=== PATIENT | male | born 1995 | race Caucasian/White ===

== ENCOUNTER 2019-01-17 18:56 | Emergency (ER) | payer BC ==
[~2019-01-17] VITALS: Ht 193 cm; Wt 113.4 kg
[~2019-01-17 18:56] MED LIST: AMOXICILLIN,AM875 MG PO; MOTRIN800 MG PO; ZITHROMAX Z PA250 MG PO
[2019-01-17 19:22] LABS: BASO # 0.1 10*3/uL (0.0-0.1); BASO % 0.6 % (0.0-1.0); EOS # 0.2 10*3/uL (0.0-0.4); HEMATOCRIT 51.2 % (42.0-52.0); HEMOGLOBIN 16.7 g/dl (14.0-18.0); LYMPH # 2.4 10*3/uL (1.3-4.4); LYMPH % 23.7 % (27.0-41.0); MEAN CELL VOLUME 88.3 fl (80.0-94.0); MEAN CORPUSCULAR HGB 28.8 pg (27.0-31.0); MEAN CORPUSCULAR HGB CONC 32.6 g/dl (33.0-37.0); MONO # 0.7 10*3/uL (0.1-1.0); MONO % 6.9 % (3.0-9.0); NEUT # 6.7 10*3/uL (2.3-7.9); NEUT % 66.5 % (47.0-73.0); PLATELET COUNT AUTOMATED 417 10*3/uL (130-400); RED CELL DISTRI WIDTH 13.3 % (0-14.5); WHITE BLOOD COUNT 10.1 10*3/uL (4.8-10.8)
[2019-01-17 19:49] LABS: ALBUMIN 3.9 gm/dl (3.1-4.5); ALKALINE PHOSPHATASE 59 U/L (45-117); BUN 13 mg/dl (7-24); CHLORIDE 105 mmol/L (98-107); CREATININE 1.16 mg/dL (0.70-1.30); LIPASE 82 U/L (73-393); POTASSIUM 3.9 mmol/L (3.5-5.1); SGOT/AST 23 IU/L (3-35); SGPT/ALT 46 U/L (12-78); SODIUM 140 mmol/L (136-145); TOTAL PROTEIN 8.2 gm/dL (6.4-8.2)
[2019-01-17 20:17] LABS: BILIRUBIN NEGATIVE (NEGATIVE); BLOOD NEGATIVE (NEGATIVE); CLARITY CLEAR (CLEAR); COLOR YELLOW (YELLOW); GLUCOSE NEGATIVE (NEGATIVE); KETONE TRACE (NEGATIVE); LEUKO ESTERASE NEGATIVE (NEGATIVE); NITRITE NEGATIVE (NEGATIVE); PH 6.5 (5.0-9.0); SPECIFIC GRAVITY 1.025 (1.005-1.030); UROBILINOGEN 0.2 E.U./dl (0.2-1.0)
[2019-01-17 20:24] LABS: MUCOUS 2+
[2019-01-17 20:25] LABS: EPITHELIAL CELLS 0-2
[2019-01-17] MEDS ORDERED: PEPCID20 MG PO (21:34)
== END 2019-01-17 21:42 | disposition home or self-care (01) ==
LOC: ED 18:56
PROVIDERS: Physician Assistant
DX: R11.10 Vomiting, unspecified (principal); R10.13 Epigastric pain; R05 Cough; R09.81 Nasal congestion; R53.1 Weakness; R42 Dizziness and giddiness; Z88.1 Allergy status to other antibiotic agents

== ENCOUNTER → 2021-02-08 | Outpatient (CLI) | payer OTHER ==
[~2021-02-08] MED LIST changes: +PEPCID20 MG PO
== END | disposition home or self-care (01) ==
LOC: RAD 11:39
PROVIDERS: ATTEND Internal Medicine
DX: R07.82 Intercostal pain (principal)

== ENCOUNTER → 2021-09-25 | Outpatient (CLI) | payer OTHER | END | disposition home or self-care (01) | LOC: US 09-20 13:00 | PROVIDERS: ATTEND Internal Medicine Nephrology | DX: N50.3 Cyst of epididymis (principal); N43.3 Hydrocele, unspecified ==

== ENCOUNTER → 2022-01-11 | Outpatient (CLI) | payer OTHER ==
[2022-01-11 10:54] LABS: BASO # 0.1 10*3/uL (0.0-0.1); BASO % 0.7 % (0.0-1.0); EOS # 0.3 10*3/uL (0.0-0.4); EOS % 3.2 % (1.0-4.0); HEMATOCRIT 49.7 % (42.0-52.0); LYMPH % 34.9 % (27.0-41.0); MEAN CELL VOLUME 88.4 fl (80.0-94.0); MEAN CORPUSCULAR HGB 29.2 pg (27.0-31.0); MEAN PLATELET VOLUME 9.3 fl (9.6-12.3); MONO # 0.9 10*3/uL (0.1-1.0); MONO % 10.4 % (3.0-9.0); NEUT # 4.3 10*3/uL (2.3-7.9); NEUT % 50.7 % (47.0-73.0); PLATELET COUNT AUTOMATED 370 10*3/uL (130-400); RED BLOOD COUNT 5.62 10*6/uL (4.50-5.90); RED CELL DISTRI WIDTH 13.5 % (0-14.5); RETICULOCYTE % 0.98 % (0.50-2.50); WHITE BLOOD COUNT 8.5 10*3/uL (4.8-10.8)
[2022-01-11 11:03] LABS: BILIRUBIN Negative (Negative); BLOOD Negative (Negative); CLARITY Clear (Clear); COLOR Yellow (Yellow); GLUCOSE Negative (Negative); KETONE Negative (Negative); LEUKO ESTERASE Negative (Negative); NITRITE Negative (Negative); UROBILINOGEN 0.2 E.U./dl (0.0-1.0)
[2022-01-11 11:18] LABS: ALKALINE PHOSPHATASE 77 U/L (45-117); BUN 7 mg/dl (7-24); CHLORIDE 108 mmol/L (98-107); CHOLESTEROL 146 mg/dL (<200); CREATININE 0.94 mg/dL (0.70-1.30); GAMMA GLUTAMYL TRANSPEPTIDASE 37 U/L (15-85); IRON 54 ug/dL (65-175); LDL CHOLESTEROL 79 mg/dL (9-159); POTASSIUM 3.4 mmol/L (3.5-5.1); SGOT/AST 26 IU/L (3-35); SGPT/ALT 47 U/L (12-78); SODIUM 143 mmol/L (136-145); TOTAL PROTEIN 7.5 gm/dL (6.4-8.2); TRIGLYCERIDES 132 mg/dl (<150); URIC ACID 5.7 mg/dL (3.5-7.2)
[2022-01-11 11:19] LABS: BACTERIA 1+; EPITHELIAL CELLS 0-2; MUCOUS TRACE; RBC 0-2 rbc/hpf (0-2); WBC 0-2 wbc/hpf (0-5)
[2022-01-11 12:21] LABS: FERRITIN 65.2 ng/mL (22.0-322.0)
[2022-01-12 04:06] LABS: RHEUMATOID FACTOR <10.0 IU/mL (<14.0)
[2022-01-14 13:06] LABS: ANTI-DSDNA ANTIBODIES <1 IU/mL (0-9)
== END ==
LOC: LAB 10:10
PROVIDERS: ATTEND Family Medicine
DX: R53.83 Other fatigue (principal); R79.89 Other specified abnormal findings of blood chemistry; E55.9 Vitamin D deficiency, unspecified; E78.5 Hyperlipidemia, unspecified

== ENCOUNTER → 2022-05-30 | Outpatient (CLI) | payer OTHER ==
[~2022-05-30] MED LIST changes: +ONDANSETRON4 MG SL
[2022-05-30 15:47] LABS: BASO % 0.5 % (0.0-1.0); EOS % 0.5 % (1.0-4.0); HEMATOCRIT 50.7 % (42.0-52.0); LYMPH # 1.6 10*3/uL (1.3-4.4); LYMPH % 21.7 % (27.0-41.0); MEAN CELL VOLUME 87.1 fl (80.0-94.0); MEAN CORPUSCULAR HGB 28.9 pg (27.0-31.0); MEAN CORPUSCULAR HGB CONC 33.1 g/dl (33.0-37.0); MEAN PLATELET VOLUME 8.7 fl (9.6-12.3); MONO # 0.4 10*3/uL (0.1-1.0); MONO % 5.9 % (3.0-9.0); NEUT # 5.2 10*3/uL (2.3-7.9); NEUT % 71.1 % (47.0-73.0); PLATELET COUNT AUTOMATED 409 10*3/uL (130-400); RED BLOOD COUNT 5.82 10*6/uL (4.50-5.90); RED CELL DISTRI WIDTH 13.8 % (0-14.5); RETICULOCYTE % 1.37 % (0.50-2.50); WHITE BLOOD COUNT 7.3 10*3/uL (4.8-10.8)
[2022-05-30 15:52] LABS: BILIRUBIN Negative (Negative); BLOOD Negative (Negative); CLARITY Clear (Clear); COLOR Yellow (Yellow); GLUCOSE Negative (Negative); KETONE Trace (Negative); LEUKO ESTERASE Negative (Negative); NITRITE Negative (Negative); PH 7.5 (4.5-8.0); SPECIFIC GRAVITY 1.025 (1.001-1.030)
[2022-05-30 16:05] LABS: ALKALINE PHOSPHATASE 59 U/L (46-116); BUN 9 mg/dl (9-23); CHLORIDE 105 mmol/L (98-107); CHOLESTEROL 178 mg/dL (<200); GAMMA GLUTAMYL TRANSPEPTIDASE 31 U/L (0-73); LDL CHOLESTEROL 111 mg/dL (9-159); LIPASE 36 U/L (12-53); POTASSIUM 3.9 mmol/L (3.4-5.1); SGPT/ALT 23 U/L (10-49); THYROID STIM HORMONE (HS) 0.835 uIU/ml (0.550-4.780); TOTAL PROTEIN 7.6 gm/dL (6.0-8.0); TRIGLYCERIDES 104 mg/dl (<150)
[2022-05-30 16:06] LABS: VITAMIN D, 25-HYDROXY 39.8 ng/mL (30-100)
[2022-05-30 16:38] LABS: BACTERIA 1+; HYALINE CAST 0-2; MUCOUS 2+; WBC 0-2 wbc/hpf (0-5)
[2022-05-31 09:08] LABS: H PYLORI IGG AB 0.08 (0.00-0.79)
[2022-05-31 15:07] LABS: H.PYLORI AB IGM <9.0 units (0.0-8.9)
[2022-05-31 16:08] LABS: H.PYLORI IgA 34.4 units (0.0-8.9)
== END | disposition home or self-care (01) ==
LOC: LAB 15:06
PROVIDERS: ATTEND Family Medicine
DX: E78.5 Hyperlipidemia, unspecified (principal); R79.89 Other specified abnormal findings of blood chemistry; R53.83 Other fatigue; R74.8 Abnormal levels of other serum enzymes; E55.9 Vitamin D deficiency, unspecified

== ENCOUNTER 2022-06-03 17:51 | Emergency (ER) | payer OTHER ==
[~2022-06-03] VITALS: Wt 122.5 kg
[~2022-06-03 17:51] MED LIST changes: -ONDANSETRON4 MG SL
[2022-06-03] MEDS ORDERED: ONDANSETRON4 MG SL (20:14)
[2022-06-03 20:30] LABS: BASO % 0.5 % (0.0-1.0); EOS # 0.1 10*3/uL (0.0-0.4); EOS % 0.6 % (1.0-4.0); HEMATOCRIT 52.6 % (42.0-52.0); LYMPH # 1.9 10*3/uL (1.3-4.4); LYMPH % 21.6 % (27.0-41.0); MEAN CELL VOLUME 89.6 fl (80.0-94.0); MEAN CORPUSCULAR HGB 28.8 pg (27.0-31.0); MEAN CORPUSCULAR HGB CONC 32.1 g/dl (33.0-37.0); MEAN PLATELET VOLUME 8.6 fl (9.6-12.3); MONO # 0.6 10*3/uL (0.1-1.0); MONO % 7.1 % (3.0-9.0); NEUT # 6.1 10*3/uL (2.3-7.9); NEUT % 70.1 % (47.0-73.0); PLATELET COUNT AUTOMATED 393 10*3/uL (130-400); RED BLOOD COUNT 5.87 10*6/uL (4.50-5.90); RED CELL DISTRI WIDTH 13.6 % (0-14.5); WHITE BLOOD COUNT 8.6 10*3/uL (4.8-10.8)
[2022-06-03 20:36] LABS: BILIRUBIN Negative (Negative); BLOOD Negative (Negative); CLARITY Clear (Clear); COLOR Yellow (Yellow); GLUCOSE Negative (Negative); KETONE Negative (Negative); LEUKO ESTERASE Negative (Negative); NITRITE Negative (Negative)
[2022-06-03 20:47] LABS: ALKALINE PHOSPHATASE 62 U/L (46-116); BUN 5 mg/dl (9-23); CHLORIDE 105 mmol/L (98-107); LIPASE 35 U/L (12-53); POTASSIUM 4.1 mmol/L (3.4-5.1); SGPT/ALT 22 U/L (10-49); TOTAL PROTEIN 7.7 gm/dL (6.0-8.0)
[2022-06-03 20:58] LABS: RBC 0-2 rbc/hpf (0-2); WBC 0-2 wbc/hpf (0-5)
== END 2022-06-04 01:39 | disposition home or self-care (01) ==
LOC: ED 17:51
PROVIDERS: Physician Assistant
DX: K52.9 Noninfective gastroenteritis and colitis, unspecified (principal); K80.20 Calculus of gallbladder without cholecystitis without obstruction; R91.1 Solitary pulmonary nodule; Z88.8 Allergy status to other drugs, medicaments and biological substances

== ENCOUNTER 2022-06-10 13:22 | Emergency (ER) | payer OTHER ==
[~2022-06-10] VITALS: Ht 193 cm; Wt 127.0 kg
[~2022-06-10 13:22] MED LIST changes: +ONDANSETRON4 MG SL
[2022-06-10 14:58] LABS: BASO # 0.1 10*3/uL (0.0-0.1); BASO % 0.8 % (0.0-1.0); EOS # 0.2 10*3/uL (0.0-0.4); EOS % 2.2 % (1.0-4.0); HEMATOCRIT 49.7 % (42.0-52.0); LYMPH # 2.3 10*3/uL (1.3-4.4); LYMPH % 29.7 % (27.0-41.0); MEAN CELL VOLUME 87.2 fl (80.0-94.0); MEAN CORPUSCULAR HGB 29.3 pg (27.0-31.0); MEAN CORPUSCULAR HGB CONC 33.6 g/dl (33.0-37.0); MEAN PLATELET VOLUME 8.6 fl (9.6-12.3); MONO # 0.7 10*3/uL (0.1-1.0); MONO % 8.9 % (3.0-9.0); NEUT # 4.6 10*3/uL (2.3-7.9); NEUT % 58.3 % (47.0-73.0); PLATELET COUNT AUTOMATED 414 10*3/uL (130-400); RED CELL DISTRI WIDTH 13.4 % (0-14.5); WHITE BLOOD COUNT 7.9 10*3/uL (4.8-10.8)
[2022-06-10 15:18] LABS: ALKALINE PHOSPHATASE 57 U/L (46-116); BUN 6 mg/dl (9-23); CHLORIDE 101 mmol/L (98-107); LIPASE 34 U/L (12-53); POTASSIUM 4.2 mmol/L (3.4-5.1); SGPT/ALT 22 U/L (10-49); TOTAL PROTEIN 7.2 gm/dL (6.0-8.0)
[2022-06-10] MEDS ORDERED: IBU800 M2 PO (16:10)
== END 2022-06-10 16:23 | disposition home or self-care (01) ==
LOC: ED 13:22
PROVIDERS: Internal Medicine
DX: R10.31 Right lower quadrant pain (principal); R10.11 Right upper quadrant pain; R11.0 Nausea; Z88.1 Allergy status to other antibiotic agents

== ENCOUNTER → 2022-07-04 | Day surgery (SDC) | payer OTHER ==
[2022-07-02 12:49] VITALS: BP 150/98
[~2022-07-04] VITALS: Ht 193 cm; Wt 127.0 kg
[2022-07-04] VITALS (7 sets, daily range): BP systolic 142–171; BP diastolic 79–102
[~2022-07-04] MED LIST changes: +COLACE100 MG PO; +HYDROCODONE-AC1 EAC1 PO; +IBU800 M2 PO; +ONDANSETRON HYDR4 M1 PO
== END | disposition home or self-care (01) ==
LOC: SDC 07-02 12:30
PROVIDERS: ATTEND Surgery
DX: K80.10 Calculus of gallbladder with chronic cholecystitis without obstruction (principal)

== ENCOUNTER → 2023-10-03 | Outpatient (CLI) | payer OTHER | END | disposition home or self-care (01) | LOC: RAD 11:02 | PROVIDERS: ATTEND Family Medicine | DX: M54.50 Low back pain, unspecified (principal) ==

== ENCOUNTER 2023-11-25 19:55 | Emergency (ER) | payer OTHER ==
[~2023-11-25] VITALS: Ht 193 cm; Wt 139.7 kg
[2023-11-25] MEDS ORDERED: Acetaminophen/Hydrocodone 5 MG/325 MG TABLET PO ONE (20:25)
[2023-11-25] MEDS ORDERED: PREDNISONE20 M1 PO (22:32)
== END 2023-11-25 22:34 | disposition home or self-care (01) ==
LOC: ED 19:55
DX: M54.6 Pain in thoracic spine (principal); Z88.8 Allergy status to other drugs, medicaments and biological substances

== ENCOUNTER → 2023-12-09 | Outpatient (CLI) | payer OTHER ==
[~2023-12-09] MED LIST changes: +PREDNISONE20 M1 PO
== END | disposition home or self-care (01) ==
LOC: MRI 10:00
PROVIDERS: ATTEND Family Medicine
DX: M47.814 Spondylosis without myelopathy or radiculopathy, thoracic region (principal); M51.34 Other intervertebral disc degeneration, thoracic region

== ENCOUNTER 2024-07-10 20:47 | Emergency (ER) | payer SELFPAY ==
[~2024-07-10] VITALS: Ht 193 cm; Wt 140.6 kg
[2024-07-10] MEDS ORDERED: hydrOXYzine pamoate 25 MG CAP PO ONE (21:10)
[2024-07-10 21:24] LABS: BASO % 0.5 % (0.0-1.0); EOS % 0.5 % (1.0-4.0); HEMATOCRIT 49.3 % (42.0-52.0); MEAN CELL VOLUME 85.4 fl (80.0-94.0); MEAN CORPUSCULAR HGB 28.4 pg (27.0-31.0); MEAN CORPUSCULAR HGB CONC 33.3 g/dl (33.0-37.0); MEAN PLATELET VOLUME 8.5 fl (9.6-12.3); MONO # 0.6 10*3/uL (0.1-1.0); MONO % 7.4 % (3.0-9.0); NEUT # 5.1 10*3/uL (2.3-7.9); NEUT % 64.7 % (47.0-73.0); PLATELET COUNT AUTOMATED 406 10*3/uL (130-400); RED BLOOD COUNT 5.77 10*6/uL (4.50-5.90); WHITE BLOOD COUNT 7.8 10*3/uL (4.8-10.8)
[2024-07-10 21:42] LABS: BUN 7 mg/dl (9-23); CHLORIDE 103 mmol/L (98-107); POTASSIUM 3.8 mmol/L (3.4-5.1)
== END 2024-07-10 22:34 | disposition home or self-care (01) ==
LOC: ED 20:47
PROVIDERS: Physician Assistant Medical
DX: R00.2 Palpitations (principal); R42 Dizziness and giddiness; R07.89 Other chest pain; F90.9 Attention-deficit hyperactivity disorder, unspecified type; F41.9 Anxiety disorder, unspecified; Z88.1 Allergy status to other antibiotic agents; Z79.899 Other long term (current) drug therapy